=== PATIENT | male | born 1975 | race African-American/Black ===

== ENCOUNTER 2019-11-24 07:15 | Emergency (ER) | payer MEDICAID, OTHER, SELFPAY ==
[~2019-11-24] VITALS: Ht 185.4 cm; Wt 90.0 kg
--- NOTE | 2019-11-24 07:21 | NUR ---
CALLED FOR TRIAGE, NO ANSWER
[2019-11-24 07:29] VITALS: BP 125/73
== END 2019-11-24 07:55 | disposition home or self-care (01) ==
LOC: ED 07:49
DX: K04.7 Periapical abscess without sinus (principal)
CPT/HCPCS: 99283

== ENCOUNTER 2019-11-27 13:06 | Emergency (ER) | payer OTHER ==
[~2019-11-27] VITALS: Ht 185.4 cm; Wt 92.9 kg
[2019-11-27 14:05] LABS: BASOPHILS # (AUTO) 0.01 x10^3/uL (0-0.1); BASOPHILS % (AUTO) 0 % (0-1); EOSINOPHILS # (AUTO) 0.17 x10^3/uL (0-0.4); EOSINOPHILS % (AUTO) 1 % (1-7); LYMPHOCYTES # (AUTO) 1.43 x10^3/uL (1-3.4); LYMPHOCYTES % (AUTO) 12 % (22-44); MD NO; MEAN CORPUSCULAR HEMOGLOBIN 30.8 pg (27.5-34.5); MEAN CORPUSCULAR HGB CONC 33.3 g/dL (33.2-36.2); MEAN PLATELET VOLUME 7.7 fL (7.4-10.4); MONOCYTES % (AUTO) 4 % (2-9); NEUTROPHILS # (AUTO) 10.28 x10^3/uL (1.8-6.8); NEUTROPHILS % (AUTO) 83 % (42-75); PLATELET COUNT 284 x10^3/uL (130-400); RED CELL DISTRIBUTION WIDTH 14.1 % (9.4-14.8)
[2019-11-27 14:20] LABS: ANION GAP 5 mmol/L (5-15); CALCIUM 8.3 mg/dL (8.5-10.1); CHLORIDE 109 mmol/L (98-107)
[2019-11-27 14:22] LABS: CREATININE 0.89 mg/dL (0.7-1.3)
[2019-11-27] MEDS ORDERED: MORPHINE SULFATE 4 MG/ML, 1ML IVPush ONE (14:30)
[2019-11-27] MEDS ORDERED: OMNIPAQUE 350 MG/ML, 75ML BOTTLE ONE (15:03)
[2019-11-27] MEDS ORDERED: MORPHINE SULFATE 4 MG/ML, 1ML ONE (15:05)
--- NOTE | 2019-11-27 16:20 | NUR ---
AWAITING [facility] SURGEON FOR EVAL, PT RESTING IN [facility], NO NEEDS AT THIS TIME
[2019-11-27] MEDS ORDERED: LIDOCAINE 1%-EPI 1:100K, 50ML INFIL ONE (16:30)
--- NOTE | 2019-11-27 16:30 | NUR ---
Central Supply to deliver Oral Surgery Tray.
--- NOTE | 2019-11-27 17:39 | NUR ---
RN at bedside to assist Dr Lewis with procedure
[2019-11-27] MEDS ORDERED: HYDROcodone/APAP 5/325 TABLET PO ONE (19:00)
[2019-11-27 19:13] VITALS: BP 127/78
== END 2019-11-27 19:16 | disposition home or self-care (01) ==
LOC: ED 13:38
DX: L02.01 Cutaneous abscess of face (principal); K08.89 Other specified disorders of teeth and supporting structures
CPT/HCPCS: 36415; 70487; 80048; 85025; 96374; 99285; J2270; Q9967